=== PATIENT | female | born 1945 | race African-American/Black ===

== ENCOUNTER → 2016-10-07 | Outpatient (CLI) | payer MEDICARE ==
[~2016-10-07] MED LIST: ACCUKIT13; ACCUMIS19; AMLO10 PO; ASPI81TA19 PO; BLOOKIT SQ; BLOOKIT15; CALC1TAB12 PO; CLON0.3D T-DERMAL; GARL500C5 PO; HYDR25TA5 PO; IBUP200C PO; LIPI40TA PO; LISI40TA PO; MAGN400T2 PO; MELA1TAB22 PO; METF500 PO; METO100T PO; MULTCAP PO; POTA-163 PO
[2016-10-07 07:37] LABS: BICARBONATE 29.5 MEQ/L (21.0-32.0); POTASSIUM 3.4 MEQ/L (3.5-5.1)
== END ==
LOC: CLAB 06:52
PROVIDERS: ATTEND Urology
DX: N28.89 Other specified disorders of kidney and ureter (principal)
CPT/HCPCS: 36415; 80048

== ENCOUNTER → 2016-11-12 | Outpatient (CLI) | payer MEDICARE ==
[2016-11-12 09:45] LABS: HEMATOCRIT 37.7 % (35.0-46.0); MEAN CELL VOLUME 88.6 FL (80.0-100.0); MEAN CORPUSCULAR HGB CONC 33.9 % (32.0-36.0); PLATELET COUNT 238 TH/MM3 (150-450); RED BLOOD COUNT 4.26 MIL/MM3 (4.00-5.30); REVIEW FLAG FINAL; WHITE BLOOD COUNT 8.4 TH/MM3 (4.0-11.0)
[2016-11-12 09:55] LABS: APTT (PATIENT) 25.4 SEC (24.3-30.1); PROTHROMBIN TIME - PATIENT 11.4 SEC (9.8-11.6)
== END ==
LOC: CLAB 09:24
PROVIDERS: ATTEND Urology
DX: N28.89 Other specified disorders of kidney and ureter (principal)
CPT/HCPCS: 36415; 85027; 85610; 85730

== ENCOUNTER → 2016-11-14 | Outpatient (CLI) | payer MEDICARE ==
--- NOTE | 2016-11-14 11:14 | RADRPT ---
EXAM DATE/TIME: 11/14/2016 00:00 [facility] COMPARISON: CT cryoablation February 20, 2016, CT abdomen and pelvis December 17, 2015. OUTSIDE STUDY REVIEWED: CT abdomen and pelvis October 18, 2016 from [facility] INDICATIONS : CT Guided cryoablation and biopsy of right renal FINDINGS: This is a 71-year-old female who underwent renal biopsy with concomitant cryoablation of a right imer l mass. The pathology showed no malignancy. Renal parenchyma with stromal tissue and retroperitoneal tissue was identified. The patient did not have repeat imaging until 8 months post cryoablation. This study shows enlargement of the lesion. We have been asked to evaluate for repeat biopsy and cryoabla tion. I reviewed the imaging and the patient's history. I spoke with . There is no issue with rep eat biopsy of this renal mass. I would tend to forego repeat cryoablation at this point. I would rath er identify the type of lesion with the biopsy first. Also, the lesion continued to grow following in itial cryoablation which would suggest less than cytotoxic effects from the freezing at the time of t he cryoablation. There is a decent caliber renal vein adjacent to this lesion which could act as a wa rming mechanism to prevent cytotoxic freezing. If the biopsy shows renal cell carcinoma then I would tend to favor partial nephrectomy. Dr. Barrett was in agreement. RECOMMENDATION: Proceed with renal biopsy blood forego cryoablation at this point. Please see above discussion. Lamine Balderas Jr., MD on November 14, 2016 at 11:03 Board Certified Radiologist. This report was verified electronically.
== END ==
LOC: HRAD 08:25
PROVIDERS: ATTEND Pathology Anatomic Pathology & Clinical Pathology
DX: N28.89 Other specified disorders of kidney and ureter (principal)
CPT/HCPCS: 76140

== ENCOUNTER 2016-11-18 06:54 | Day surgery (SDC) | payer MEDICARE ==
[2016-11-18] VITALS (10 sets, daily range): BP systolic 112–174; BP diastolic 48–77; PULSE 46–56; RESP 16–20; TEMP 97.8; O2SAT 90–98
[~2016-11-18] VITALS: Ht 160 cm; Wt 75.5 kg
[~2016-11-18 06:54] MED LIST changes: -ACCUKIT13; -ACCUMIS19; -BLOOKIT SQ; -BLOOKIT15
[2016-11-18] MEDS ORDERED: LIDOCAINE 1%/EPINEPHrine 1:100,000 SOLN 20 ML VIAL ONE (07:32)
[2016-11-18 08:24] LABS: POTASSIUM 3.6 MEQ/L (3.5-5.1)
[2016-11-18] MEDS ORDERED: fentaNYL CITRATE 250 MCG/5 ML AMP ONE (08:43)
[2016-11-18] MEDS ORDERED: MIDAZOLAM HCL 5 MG/5 ML VIAL ONE (08:44)
[2016-11-18] MEDS ORDERED: INSULIN HUMAN REGULAR 1,000 UNITS/10 ML VIAL SQ PRN (08:45)
[2016-11-18] MEDS ORDERED: METOPROLOL TARTRATE 25 MG TAB PO PRN (08:45)
[2016-11-18] MEDS ORDERED: SODIUM CHLORID 0.9% 500 ML IV SCH (09:00)
[2016-11-18] MEDS ORDERED: LACTATED RINGER'S 1000 ML IV SCH (09:00)
[2016-11-18] MEDS ORDERED: THROMBIN (TOPICAL) 5,000 UNIT VIAL ONE (09:01)
[2016-11-18 10:10] LABS: AUTOMATED NEUTROPHIL # 4.3 TH/MM3 (1.8-7.7); BASOPHIL # 0.1 TH/MM3 (0-0.2); BASOPHIL % 1.1 % (0.0-2.0); EOSINOPHIL # 0.2 TH/MM3 (0-0.4); EOSINOPHIL % 1.9 % (0.0-4.0); HEMATOCRIT 35.4 % (35.0-46.0); HEMO FLAGS DIFF FINAL; LYMPH % 40.1 % (9.0-44.0); LYMPHOCYTE # 3.5 TH/MM3 (1.0-4.8); MEAN CELL VOLUME 86.9 FL (80.0-100.0); MEAN CORPUSCULAR HEMOGLOBIN 30.2 PG (27.0-34.0); MEAN CORPUSCULAR HGB CONC 34.7 % (32.0-36.0); MONO % 6.5 % (0.0-8.0); NEUT % 50.4 % (16.0-70.0); PLATELET COUNT 231 TH/MM3 (150-450); RED BLOOD COUNT 4.08 MIL/MM3 (4.00-5.30); RED CELL DISTRIBUTION WIDTH 13.7 % (11.6-17.2); WHITE BLOOD COUNT 8.6 TH/MM3 (4.0-11.0)
[2016-11-18 12:25] LABS: AUTOMATED NEUTROPHIL # 6.2 TH/MM3 (1.8-7.7); BASOPHIL # 0.1 TH/MM3 (0-0.2); BASOPHIL % 0.8 % (0.0-2.0); EOSINOPHIL # 0.2 TH/MM3 (0-0.4); EOSINOPHIL % 1.5 % (0.0-4.0); LYMPH % 39.8 % (9.0-44.0); LYMPHOCYTE # 4.9 TH/MM3 (1.0-4.8); MEAN CELL VOLUME 87.4 FL (80.0-100.0); MEAN CORPUSCULAR HEMOGLOBIN 30.1 PG (27.0-34.0); MEAN CORPUSCULAR HGB CONC 34.4 % (32.0-36.0); MONO % 7.6 % (0.0-8.0); NEUT % 50.3 % (16.0-70.0); PLATELET COUNT 201 TH/MM3 (150-450); RED BLOOD COUNT 4.12 MIL/MM3 (4.00-5.30); RED CELL DISTRIBUTION WIDTH 13.8 % (11.6-17.2); WHITE BLOOD COUNT 12.3 TH/MM3 (4.0-11.0)
[2016-11-18 12:43] LABS: HEMO FLAGS AUTO DIFF
[2016-11-18 12:45] LABS: PLATELET ESTIMATE SMEAR NORMAL (NORMAL); PLATELET MORPHOLOGY ENLARGED (NORMAL); SCAN/DIFF AUTO DIFF CONFIRMED
[2016-11-18] MEDS ORDERED: ONDANSETRON HCL 4 MG/2 ML VIAL ONE (14:24)
[2016-11-18] MEDS ORDERED: ONDANSETRON HCL 4 MG/2 ML VIAL IV PUSH ONE (15:15)
--- NOTE | 2016-11-18 15:23 | RADRPT ---
EXAM DATE/TIME: 11/18/2016 08:50 [facility] COMPARISON: CT NEEDLE BIOPSY RENAL, RIGHT, February 20, 2016, 13:16. INDICATIONS : Right renal mass. SEDATION TIME: 30 minutes BIOPSY SITE: Right kidney MEDICATION(S): 1.) 2 mg midazolam (Versed) IV 2.) 100 mcg fentanyl (Sublimaze) IV DEVICE(S): 1.) 18 gauge Temno core biopsy needle 2.) 17 gauge Temno core biopsy needle MEDICAL HISTORY : Hypertension. Diabetes mellitus type 2. SURGICAL HISTORY : Hysterectomy. ENCOUNTER: Initial ACUITY: 1 day PAIN SCORE: 0/10 LOCATION: Right kidney. A total of one core specimen(s) were obtained and sent to the laboratory for pathologic evaluation. PROCEDURE: 1. CT guided renal biopsy. 2. Conscious sedation with continuous EKG and oximetry monitoring. 3. EKG and oximetry remained stable throughout the procedure. Prior to the procedure informed consent was obtained. Any appropriate prior imaging studies were rev iewed. Using automated exposure control and adjustment of the mA and/or kV according to patient size, radiat ion dose was kept as low as reasonably achievable to obtain optimal diagnostic quality images. The site was prepped in a sterile fashion. Full sterile technique was used, including cap, mask, earle rile gloves and gown and a large sterile sheet. Hand hygiene and 2% chlorhexidine and/or betadine/al cohol prep was utilized per protocol for cutaneous antisepsis. The skin and subcutaneous tissues wer e infiltrated with local anesthetic solution. With CT guidance the previously identified target was localized. Biopsy was performed using the presc ribed needle as above. Adequate hemostasis was obtained with compression at the puncture site. Follow-up CT scan reveals no hemorrhage. The patient tolerated the procedure well and there were no complications. The patient was returned to the Radiology Outpatient Unit in stable condition. CONCLUSION: Uncomplicated CT guided biopsy. Rome Arce MD on November 18, 2016 at 15:21 Board Certified Radiologist. This report was verified electronically.
[2016-11-27] MEDS ORDERED: CLON0.3D T-DERMAL (11:16)
[2017-01-09] MEDS ORDERED: BLOOKIT SQ (09:11)
[2017-01-13] MEDS ORDERED: ACCUKIT13 (08:54)
[2017-01-13] MEDS ORDERED: BLOOKIT15 (08:54)
[2017-01-13] MEDS ORDERED: ACCUMIS19 (08:56)
== END 2016-11-18 15:25 | disposition home or self-care (01) ==
LOC: HRAD 06:54 → HRIP 06:58 → HRAD 15:25
PROVIDERS: ATTEND Urology
DX: N28.89 Other specified disorders of kidney and ureter (principal); I10 Essential (primary) hypertension; E11.9 Type 2 diabetes mellitus without complications; Z90.710 Acquired absence of both cervix and uterus
CPT/HCPCS: 50200; 77012; 80048; 85025; 88305; J2250; J2405; J3010; J7040

== ENCOUNTER → 2017-02-03 | Outpatient (CLI) | payer MEDICARE ==
[~2017-02-03] MED LIST changes: +ACCUMIS19; +BLOOKIT15; -IBUP200C PO
[2017-02-03 11:29] LABS: AUTOMATED NEUTROPHIL # 3.6 TH/MM3 (1.8-7.7); BASOPHIL # 0.1 TH/MM3 (0-0.2); BASOPHIL % 1.3 % (0.0-2.0); EOSINOPHIL # 0.2 TH/MM3 (0-0.4); EOSINOPHIL % 2.3 % (0.0-4.0); HEMATOCRIT 35.4 % (35.0-46.0); HEMO FLAGS DIFF FINAL; LYMPH % 40.9 % (9.0-44.0); MEAN CELL VOLUME 86.8 FL (80.0-100.0); MEAN CORPUSCULAR HEMOGLOBIN 29.4 PG (27.0-34.0); MEAN CORPUSCULAR HGB CONC 33.9 % (32.0-36.0); MONO % 6.4 % (0.0-8.0); NEUT % 49.1 % (16.0-70.0); PLATELET COUNT 243 TH/MM3 (150-450); RED BLOOD COUNT 4.07 MIL/MM3 (4.00-5.30); WHITE BLOOD COUNT 7.4 TH/MM3 (4.0-11.0)
[2017-02-03 11:46] LABS: MICRO ALBUMIN RANDOM URINE RAW 16.9 MG/L (0.0-30.0)
[2017-02-03 11:55] LABS: ANION GAP 3 MEQ/L (5-15); AST (GOT) 32 U/L (15-37); BICARBONATE 30.6 MEQ/L (21.0-32.0); BLOOD UREA NITROGEN 13 MG/DL (7-18); CHLORIDE 106 MEQ/L (98-107); GLOMERULAR FILTRATION RATE 79 ML/MIN (>89); GLUCOSE,FASTING 104 MG/DL (74-99); POTASSIUM 3.8 MEQ/L (3.5-5.1); SODIUM (NA) 140 MEQ/L (136-145)
[2017-02-03 12:06] LABS: ALKALINE PHOSPHATASE 95 U/L (45-117); ALT (GPT) 30 U/L (10-53); HDL CHOLESTEROL 52.6 MG/DL (40.0-60.0); LDL CHOLESTEROL 90 MG/DL (0-99); TOTAL BILIRUBIN ADULT 0.4 MG/DL (0.2-1.0)
[2017-02-03 17:56] LABS: HEMOGLOBIN A1b 0.9 %; HEMOGLOBIN Ao 84.8 %; HEMOGLOBIN LA1C 1.9 %; HEMOGLOBIN P3 3.5 %
== END ==
LOC: CLAB 10:59
PROVIDERS: ATTEND Family Medicine
DX: I10 Essential (primary) hypertension (principal); E11.9 Type 2 diabetes mellitus without complications
CPT/HCPCS: 36415; 80053; 80061; 82043; 83036; 84443; 85025

== ENCOUNTER → 2017-04-02 | Outpatient (CLI) | payer MEDICARE ==
[2017-04-02 08:48] LABS: BICARBONATE 29.4 MEQ/L (21.0-32.0); POTASSIUM 3.6 MEQ/L (3.5-5.1)
== END ==
LOC: CLAB 07:46
PROVIDERS: ATTEND Urology
DX: N28.89 Other specified disorders of kidney and ureter (principal)
CPT/HCPCS: 36415; 80048

== ENCOUNTER → 2017-07-21 | Outpatient (CLI) | payer MEDICARE ==
[~2017-07-21] MED LIST changes: -ACCUMIS19; +ACCUMIS19 SQ; +CHLOR50 PO; +GARL1CAP6 PO; -GARL500C5 PO; -HYDR25TA5 PO; -MULTCAP PO; +THERH PO
[2017-07-21 08:38] LABS: AUTOMATED NEUTROPHIL # 2.3 TH/MM3 (1.8-7.7); BASOPHIL # 0.1 TH/MM3 (0-0.2); BASOPHIL % 1.2 % (0.0-2.0); EOSINOPHIL # 0.1 TH/MM3 (0-0.4); EOSINOPHIL % 2.1 % (0.0-4.0); HEMATOCRIT 37.4 % (35.0-46.0); HEMO FLAGS DIFF FINAL; LYMPH % 47.1 % (9.0-44.0); LYMPHOCYTE # 2.7 TH/MM3 (1.0-4.8); MEAN CELL VOLUME 88.3 FL (80.0-100.0); MEAN CORPUSCULAR HEMOGLOBIN 30.3 PG (27.0-34.0); MEAN CORPUSCULAR HGB CONC 34.3 % (32.0-36.0); MONO % 8.5 % (0.0-8.0); NEUT % 41.1 % (16.0-70.0); PLATELET COUNT 229 TH/MM3 (150-450); RED BLOOD COUNT 4.24 MIL/MM3 (4.00-5.30); RED CELL DISTRIBUTION WIDTH 13.7 % (11.6-17.2); WHITE BLOOD COUNT 5.6 TH/MM3 (4.0-11.0)
[2017-07-21 09:00] LABS: MICRO ALBUMIN RANDOM URINE RAW 8.6 MG/L (0.0-30.0)
[2017-07-21 09:07] LABS: ALT (GPT) 28 U/L (10-53); ANION GAP 9 MEQ/L (5-15); AST (GOT) 24 U/L (15-37); BICARBONATE 30.1 MEQ/L (21.0-32.0); BLOOD UREA NITROGEN 16 MG/DL (7-18); CHLORIDE 101 MEQ/L (98-107); GLOMERULAR FILTRATION RATE 78 ML/MIN (>89); GLUCOSE,FASTING 116 MG/DL (74-99); POTASSIUM 3.3 MEQ/L (3.5-5.1); SODIUM (NA) 140 MEQ/L (136-145)
[2017-07-21 09:17] LABS: ALKALINE PHOSPHATASE 99 U/L (45-117); HDL CHOLESTEROL 56.5 MG/DL (40.0-60.0); LDL CHOLESTEROL 89 MG/DL (0-99); TOTAL BILIRUBIN ADULT 0.4 MG/DL (0.2-1.0)
[2017-07-21 16:28] LABS: HEMOGLOBIN A1a 0.6 %; HEMOGLOBIN Ao 84.1 %; HEMOGLOBIN LA1C 2.1 %; HEMOGLOBIN P3 3.8 %
== END ==
LOC: CLAB 08:01
PROVIDERS: ATTEND Family Medicine
DX: E78.2 Mixed hyperlipidemia (principal); I10 Essential (primary) hypertension; E11.9 Type 2 diabetes mellitus without complications; M85.80 Other specified disorders of bone density and structure, unspecified site
CPT/HCPCS: 36415; 80053; 80061; 82043; 82306; 83036; 84443; 85025

== ENCOUNTER 2017-09-01 10:42 | Emergency (ER) | payer MEDICARE ==
[~2017-09-01] VITALS: Ht 160 cm; Wt 68.0 kg
[2017-09-01 10:44] VITALS: BP 133/61; PULSE 58; RESP 20; TEMP 97.9; O2SAT 98
--- NOTE | 2017-09-01 10:58 | PD ---
HPI Chief Complaint: Cold / Flu Symptoms Time Seen by Provider: 10:51 Travel History International Travel<30 days: No Contact w/Intl Traveler<30days: No Traveled to known affect area: No History of Present Illness HPI 72-year-old female arrives to the ER complaining of generalized weakness and fatigue, cough, nasal congestion, dyspnea and subjective fevers. Multiple sick contacts at home with similar symptoms are reported and most have improved. No vomiting. No chest pain. Severity moderate. No modifying factor. PFSH Past Medical History Arthritis: Yes Cancer: No Cardiovascular Problems: No Diabetes: Yes Diminished Hearing: No Endocrine: Yes (DIABETES) GERD: Yes Genitourinary: No Hepatitis: No Hiatal Hernia: No Hypertension: Yes Neurologic: No Respiratory: No Immunizations Current: Yes Thyroid Disease: No Menopausal: Yes Tubal Ligation: Yes Past Surgical History Abdominal Surgery: No Cardiac Surgery: No Ear Surgery: No Endocrine Surgery: No Eye Surgery: No Genitourinary Surgery: No Gynecologic Surgery: Yes (HYSTERECTOMY, [id number] TUBAL LIGATION) Hysterectomy: Yes Oral Surgery: No Pacemaker: No Thoracic Surgery: No Other Surgery: Yes Social History Alcohol Use: No Tobacco Use: No Substance Use: No Allergies-Medications (Allergen,Severity, Reaction): Coded Allergies: acetaminophen (Unverified Allergy, Mild, EDEMA FACE, 09/01/17) hydrocodone (Unverified Allergy, Mild, EDEMA FACE, 09/01/17) Uncoded Allergies: Restorationism, no blood products (Adverse Reaction, Unknown, pt confirms desires no blood products, will accept substitut, 09/19/10) Reported Meds & Prescriptions Reported Meds & Active Scripts Active Lisinopril 40 Mg Tab 40 Mg PO BID Glucophage (Metformin HCl) 500 Mg Tab 500 Mg PO BIDPC With meals Metoprolol Tartrate 100 Mg Tab 100 Mg PO TID Chlorthalidone 50 Mg Tab 50 Mg PO DAILY Clonidine 168 HR Patch (Clonidine HCl) 0.3 Mg/24 Hr Patch 1 Patch T-DERMAL Q7D Accu-Chek Softclix Lancet 1 Mis Mis 1 Box SQ DIRECTED Check glucose daily Norvasc (Amlodipine Besylate) 10 Mg Tab 10 Mg PO DAILY Accu-Chek [place] Smartview W/Device (Device) 1 Kit Kit 1 Kit .ROUTE DIRECTED Check glucose three times per day Calcium 500 +D (Calcium Carbonate-Cholecalciferol) 500-400 Mg-Unit Tab 1 Tab PO DAILY Magnesium Oxide 400 Mg Tab 400 Mg PO DAILY Potassium Chloride ER (Potassium Chloride) 20 Meq Tab 20 Meq PO BID Aspir-Low (Aspirin) 81 Mg Tabdr 81 Mg PO DAILY Melatonin 5 Mg Tab 5 Mg PO HS Lipitor (Atorvastatin Calcium) 40 Mg Tab 40 Mg PO DAILY Reported Hydrochlorothiazide 25 Mg Tab 25 Mg PO DAILY Garlic 200 Mg Tab 2,000 Mg PO TID Therems-H (Multivitamin Hematinic Therapeutic) 1 Tab 1 Tab PO DAILY Review of Systems Except as stated in HPI: all other systems reviewed are Neg General / Constitutional: Positive: Fever, Chills Respiratory: Positive: Cough, Shortness of Breath, Wheezing Physical Exam Narrative GENERAL: Pleasant 72-year-old female no acute distress SKIN: Warm and dry. HEAD: Atraumatic. Normocephalic. EYES: Pupils equal and round. No scleral icterus. No injection or drainage. ENT: No nasal bleeding or discharge. Mucous membranes pink and moist. NECK: Trachea midline. No JVD. CARDIOVASCULAR: Regular rate and rhythm. RESPIRATORY: No accessory muscle use. Clear to auscultation. Breath sounds equal bilaterally. GASTROINTESTINAL: Abdomen soft, non-tender, nondistended. Hepatic and splenic margins not palpable. MUSCULOSKELETAL: Extremities without clubbing, cyanosis, or edema. No obvious deformities. NEUROLOGICAL: Awake and alert. No obvious cranial nerve deficits. Motor grossly within normal limits. Five out of 5 muscle strength in the arms and legs. Normal speech. PSYCHIATRIC: Appropriate mood and affect; insight and judgment normal. Data Data Last Documented VS Vital Signs Date Time Temp Pulse Resp B/P (MAP) Pulse Ox O2 Delivery O2 Flow Rate FiO2 09/01/17 10:44 97.9 58 20 133/61 (85) 98 Room Air Vital signs reviewed MDM Medical Decision Making Medical Screen Exam Complete: Yes Emergency Medical Condition: Yes Medical Record Reviewed: Yes Differential Diagnosis viral syndrome, influenza, pneumonia Narrative Course presentation is considered most in keeping with a viral URI or potentially influenza however symptoms began out of the window for Tamiflu. Scripts as below Diagnosis Primary Impression: Viral URI Referrals: Primary Care Physician 2 days Med/Other Pt SpecificInfo: Prescription(s) given Scripts Albuterol 6.7 GM Inh (Proventil Hfa 6.7 GM Inh) 90 Mcg/Act Aer 2 PUFF INH Q6H Y for SHORTNESS OF BREATH, #1 INHALER 0 Refills Prov: Alex Ayala MD 09/01/17 Disposition: 01 DISCHARGE HOME Condition: Stable Alex Ayala MD Sep 01, 2017 10:58
[2017-09-01] MEDS ORDERED: HYDR25TA5 PO (11:17)
[2017-09-01] MEDS ORDERED: GARL200T2 PO (11:17)
[2017-09-01] MEDS ORDERED: ALBU6.7H INH (11:25)
[2017-09-03] MEDS ORDERED: ZOFR4TAB PO (16:22)
[2017-09-03] MEDS ORDERED: AZIT250T3 PO (16:22)
== END 2017-09-01 11:42 | disposition home or self-care (01) ==
LOC: NEPD 10:42
DX: J06.9 Acute upper respiratory infection, unspecified (principal); E11.9 Type 2 diabetes mellitus without complications; K21.9 Gastro-esophageal reflux disease without esophagitis; I10 Essential (primary) hypertension; Z79.82 Long term (current) use of aspirin; Z79.899 Other long term (current) drug therapy; Z88.6 Allergy status to analgesic agent; Z88.5 Allergy status to narcotic agent
CPT/HCPCS: 99283